=== PATIENT | female | born 1960 | race Caucasian/White ===

== ENCOUNTER → 2020-09-08 09:47 | Outpatient (BNVA) | payer OTHER, SELFPAY | PROVIDERS: PCP Nurse Practitioner Family; Visit Provider Internal Medicine Endocrinology, Diabetes & Metabolism | DX: E11.9 Type 2 diabetes mellitus without complications (principal); E78.5 Hyperlipidemia, unspecified; I10 Essential (primary) hypertension; E55.9 Vitamin D deficiency, unspecified; E66.01 Morbid (severe) obesity due to excess calories; Z79.4 Long term (current) use of insulin | CPT/HCPCS: 82947 ==

== ENCOUNTER 2021-01-31 12:32 | Outpatient (REF) | payer OTHER, SELFPAY ==
--- NOTE | ~2021-01-31 | XR_ITS ---
EXAMINATION: RIGHT HAND CLINICAL INFORMATION: Effusion COMPARISON: None TECHNIQUE: 3 views right hand FINDINGS: 3 views of the right hand demonstrate a 6 x 3 mm bony density about the radial base of the first metacarpal which may represent sequela of previous injury. Adjacent fat plane appears intact making this less likely to be an acute injury. This less likely is a secondary ossification center. There is degenerative change of the first interphalangeal joint with prominent spurring present. XR/XR hand wrist RT IMPRESSION: Question acute versus chronic avulsion injury base of the first metacarpal for which clinical correlation is suggested. Degenerative change of the first interphalangeal joint.
[2021-01-31 13:40] LABS: Estimated Average Glucose 134 mg/dL; Hemoglobin A1c % 6.3 %
[2021-01-31 13:49] LABS: Uric Acid 6.5 mg/dL (2.4-5.7)
[2021-01-31 13:50] LABS: Alanine Aminotransferase 11 U/L (0-31); Albumin Level 3.9 g/dL (3.5-5.0); Alkaline Phosphatase 88 U/L (39-117); Anion Gap 15 (12-20); Aspartate Amino Transferase 12 U/L (5-31); Bilirubin Total 0.4 mg/dL (0.0-1.0); Blood Urea Nitrogen 19 mg/dL (9-16); Carbon Dioxide 25 mmol/L (22-29); Chloride 106 mmol/L (96-108); Cholesterol 155 mg/dL; Estimated Glomerular Filt Rate 39; Glucose Fasting 136 mg/dL (60-99); HDL Cholesterol 40 mg/dL; LDL Cholesterol Calculated 86 mg/dl; Sodium 141 mmol/L (135-145); Total Protein 7.7 g/dL (6.5-8.0); Triglycerides 146 mg/dL
[2021-01-31 14:16] LABS: Erythrocyte Sedimentation Rate 64 MM/HR (0-20)
== END 2021-01-31 12:33 | disposition home or self-care (01) ==
LOC: HO.HMGCX 12:32
PROVIDERS: PCP Nurse Practitioner Family; Visit Provider Nurse Practitioner Family
DX: M25.431 Effusion, right wrist (principal); M79.644 Pain in right finger(s); E11.9 Type 2 diabetes mellitus without complications; M79.646 Pain in unspecified finger(s); E78.5 Hyperlipidemia, unspecified
CPT/HCPCS: 36415; 73110; 73130; 80053; 80061; 83036; 84550; 85652

== ENCOUNTER → 2021-08-20 11:00 | Outpatient (BNVA) | payer OTHER, SELFPAY | PROVIDERS: PCP Nurse Practitioner Family; Visit Provider Nurse Practitioner Gerontology | DX: E11.9 Type 2 diabetes mellitus without complications (principal); E78.5 Hyperlipidemia, unspecified; E55.9 Vitamin D deficiency, unspecified; E66.01 Morbid (severe) obesity due to excess calories; I10 Essential (primary) hypertension; Z79.4 Long term (current) use of insulin | CPT/HCPCS: 82947; 83036 ==

== ENCOUNTER 2022-12-13 09:07 | Outpatient (REF) | payer OTHER, SELFPAY ==
[2022-12-13 11:15] LABS: MANUAL DIFF FLAG NO
[2022-12-13 11:26] LABS: Basophils Absolute Auto 0.1 X10*3/uL (0.0-0.2); Basophils Percent Auto 0.6 % (0-2); Eosinophils Absolute Auto 0.3 X10*3/uL (0.0-0.4); Eosinophils Percent Auto 3.2 % (0-4); Hematocrit 38.4 % (37.0-47.0); Hemoglobin 11.9 g/dl (12.0-16.0); Imm Gran Abs Auto 0.04 X10*3/uL (0.00-0.03); Imm Gran Pct Auto 0.4 % (0.0-0.4); Lymphocytes Absolute Auto 2.2 X10*3/uL (1.2-4.9); Lymphocytes Percent Auto 21.6 % (20-40); Mean Corpuscular Hemoglobin 28.8 pg (27.0-33.0); Mean Platelet Volume 10.8 fL (9.4-12.3); Monocytes Absolute Auto 0.6 X10*3/uL (0.1-1.2); Monocytes Percent Auto 6.3 % (2-11); Neutrophils Absolute Auto 6.8 x10*3/uL (2.0-8.3); Neutrophils Percent Auto 67.9 % (45-73); Platelet Count 326 X10*3/uL (160-400); Red Blood Count 4.13 X10*6/uL (4.20-5.50); Red Cell Distribution Width 13.9 % (11.0-16.0)
[2022-12-13 11:27] LABS: Estimated Average Glucose 160 mg/dL; Hemoglobin A1c % 7.2 %
[2022-12-13 11:38] LABS: Appearance Urine Clear; Color Urine Yellow; Glucose Urine UA Negative (Negative); Leukocyte Esterase Urine Negative (Negative); Nitrite Urine Negative (Negative); PH 5.5 (5.0-9.0); Specific Gravity - Urine 1.015 (1.005-1.025); UMIC TRIGGER UACC YES; Urine Blood Negative (Negative); Urine Ketones Negative (Negative); Urine Protein 30 (1+) mg/dL (Neg-Trace)
[2022-12-13 12:04] LABS: Alanine Aminotransferase 12 U/L (0-31); Albumin Level 3.8 g/dL (3.5-5.0); Alkaline Phosphatase 92 U/L (39-117); Anion Gap 13 (12-20); Aspartate Amino Transferase 11 U/L (5-31); Bilirubin Total 0.7 mg/dL (0.0-1.0); Blood Urea Nitrogen 16 mg/dL (9-16); Calcium 9.2 mg/dL (8.4-10.2); Carbon Dioxide 26 mmol/L (22-29); Chloride 109 mmol/L (96-108); Cholesterol 176 mg/dL; Estimated Glomerular Filt Rate 44; Glucose Fasting 102 mg/dL (60-99); HDL Cholesterol 43 mg/dL; LDL Cholesterol Calculated 112 mg/dl; Potassium 4.7 mmol/L (3.3-5.1); Sodium 143 mmol/L (135-145); Total Protein 7.4 g/dL (6.5-8.0); Triglycerides 109 mg/dL
[2022-12-13 12:04] LABS: Bacteria Urine Trace (None Seen); Hyaline Casts Urine 0-2 /LPF (0-2); RBC Urine 0-2 /HPF (0-2); WBC Urine 0-5 /HPF (0-5)
[2022-12-13 12:14] LABS: Creatinine Urine 142.36 mg/dL; Microalbum/Creatinine Ratio Ur 150.3 ug/mg cr
[2022-12-13 12:24] LABS: Folate 17.6 ng/mL (> or = 4.0); TSH reflex Free T4 1.37 uIU/mL (0.32-4.0); Vitamin B12 1362 pg/mL (200-900); Vitamin D 25-OH Total 43.6 ng/mL (>30)
== END 2022-12-13 09:08 | disposition home or self-care (01) ==
LOC: HO.HMGCLDS 09:07
PROVIDERS: PCP Nurse Practitioner Family; Visit Provider Nurse Practitioner Family
DX: Z00.00 Encounter for general adult medical examination without abnormal findings (principal); E11.9 Type 2 diabetes mellitus without complications; E55.9 Vitamin D deficiency, unspecified; D51.0 Vitamin B12 deficiency anemia due to intrinsic factor deficiency
CPT/HCPCS: 36415; 80053; 80061; 81001; 82043; 82306; 82607; 82746; 83036; 84443; 85025

== ENCOUNTER 2023-06-23 08:37 | Outpatient (AMB) | payer OTHER, SELFPAY ==
--- NOTE | 2023-06-23 09:54 | AM.OFFWIN_ITS ---
Intake Vital Signs 06/23/23 10:06 Height 5 ft 7 in BP 130/80 Blood Pressure Location Lt brachial Position Sitting Pulse 84 Pulse Source Pulse Oximeter Temp 97.7 F Temp Source Temporal Artery Scan Pulse Oximetry (%) 99 Oxygen Delivery Method Room Air Intake Visit Reasons: EST/uti/(lobby) Intake Note: pt is here today for UTI started yesterday Patient Tobacco Use Status: Never used Tobacco Allergies lisinopril [LISINOPRIL] Allergy (Mild, Verified 06/23/23 10:08) COUGHING, cough Penicillins [PENICILLINS] Allergy (Mild, Verified 06/23/23 10:08) HIVES Sulfa (Sulfonamide Antibiotics) [SULFA (SULFONAMIDE ANTIBIOTICS)] Allergy (Mild, Verified 06/23/23 10:08) HIVES adhesive tape [ADHESIVE TAPE] Allergy (Unknown, Verified 06/23/23 10:08) RASH amlodipine [Norvasc] Allergy (Unknown, Verified 06/23/23 10:08) fluid retention losartan Allergy (Unknown, Verified 06/23/23 10:08) unkown penicillin V Allergy (Unknown, Verified 06/23/23 10:08) hives rifampin Allergy (Unknown, Verified 06/23/23 10:08) severe skin chambers tape adhesive Allergy (Unknown, Verified 06/23/23 10:08) unknown Do you need a note to return to daycare/school/sports/work: No HPI EST/uti/(lobby) HPI Details This is a 63-year-old female patient who presents today with possible UTI. She reports urinary burning, frequency, urgency since yesterday morning. Has tried to increase hydration and has been drinking cranberry juice. Denies any fever or chills. Denies any back or flank pain. [facility] Medical History Colonoscopy refused H/O fracture of foot detention (current) use of insulin Morbid obesity Vitamin D deficiency Pernicious anemia Reactive depression CKD (chronic kidney disease), stage III Hypertension Dyslipidemia Diabetes type 2, controlled Surgical History H/O lumbosacral spine surgery Family History Father Congestive heart failure Emphysema lung Smoker Mother Hypertension Social History Household Members: None Housing: House Alcohol intake: never Patient Tobacco Use Status: Never used Tobacco e-Cigarette/Vaping Use: Never Used Second Hand Smoke Exposure: No service: No Current occupational status: retired Cognitive needs: No Hearing needs: No Vision needs: No Review of Systems Const All systems reviewed & are unremarkable except as noted in HPI and below Physical Exam Vital Signs: Last Vital Signs Temp 97.7 F 06/23/23 10:06 Pulse 84 06/23/23 10:06 BP 130/80 06/23/23 10:06 Pulse Ox 99 06/23/23 10:06 Oxygen Delivery Method Room Air 06/23/23 10:06 Const General: cooperative and no acute distress Resp Effort & Inspection: normal respiratory effort General: Yes bladder normal to palpation and Yes no CVA tenderness Bimanual exam- vagina & uterus: bladder normal to palpation Back/Spine/Pelvis Back: no CVA tenderness Skin General skin exam: no rashes or lesions noted Extrem General: Yes capillary refill normal and Yes no clubbing, cyanosis or edema Psych Appearance: grossly normal Mental Status: mental status grossly normal Results AMB Urinalysis, Automated UA Leukoctes 500 Jo/uL Last Edit by Davon Gaitan CMA on 06/23/23 10:0 0 UA Nitrite Negative Last Edit by Davon Gaitan CMA on 06/23/23 10:00 UA Urobilinogen 0.2 mg/dL Last Edit by Davon Gaitan CMA on 06/23/23 10 :00 UA Protein 30 mg/dL Last Edit by Davon Gaitan CMA on 06/23/23 10:00 UA pH 6.0 Last Edit by Davon Gaitan CMA on 06/23/23 10:00 UA Blood 200 Bautista/uL Last Edit by Davon Gaitan CMA on 06/23/23 10:00 UA Specific [place] 1.015 Last Edit by Davon Gaitan CMA on 06/23/23 10:00 UA Ketone Negative Last Edit by Davon Gaitan CMA on 06/23/23 10:00 UA Bilirubin 0 mg/dL Last Edit by Davon Gaitan CMA on 06/23/23 10:00 UA Glucose 0 mg/dL Last Edit by Davon Gaitan CMA on 06/23/23 10:00 Results Reviewed Results Reviewed: Laboratory Last Values Urine pH (Auto) 6.0 06/23/23 09:59 Specific [place] (Auto) 1.015 06/23/23 09:59 Urine Protein (Auto) 30 mg/dL 06/23/23 09:59 Glucose (UA)(Auto) 0 mg/dL 06/23/23 09:59 Urine Ketones (Auto) Negative 06/23/23 09:59 Urine Blood (Auto) 200 Bautista/uL 06/23/23 09:59 Urine Nitrite (Auto) Negative 06/23/23 09:59 Urine Bilirubin (Auto) 0 mg/dL 06/23/23 09:59 Urine Urobilinogen (Auto) 0.2 mg/dL 06/23/23 09:59 Leukocyte Esterase (Auto) 500 Jo/uL 06/23/23 09:59 Assessment & Plan Assessment & Plan (1) Urinary tract infection: Code(s): N39.0 - Urinary tract infection, site not specified Qualifiers: Urinary tract infection type: acute cystitis Hematuria presence: with hematuria Qualified Code(s): N30.01 - Acute cystitis with hematuria Plan: Macrobid 5 days for UTI. Also will start her on pyridium for the urinary burning. Urine dip with leuks, protein, blood. Reviewed indications, use, poss ible side effects of medication. Advised increased hydration. Will return to the clinic if she does not improve with treatment, or if symptoms such as lower back/flank pain, fever or chills develop. She verbalizes understanding and agrees to plan. Orders: Orders AMB Urinalysis Automated Today Z13.9 - Encounter for screening, unspecified Medications: New phenazopyridine 200 mg PO TID PRN 6 tabs 0RF pain 6 doses nitrofurantoin monohyd/m-cryst 100 mg (Macrobid) must administer with a meal/food 100 mg PO Q12H 10 caps 0RF 5 days N30.90 - Cystitis, unspecified without hematuria Coding Level of Care Code Est Pt Level 3 (01887) Diagnoses Acute cystitis with hematuria N30.01 Urinary tract infection type: acute cystitis Hematuria presence: with hematuria
[2023-06-23 10:06] VITALS: BP 130/80; PULSE 84; TEMP 36.5; O2SAT 99
== END 2023-06-23 10:30 | disposition home or self-care (01) ==
PROVIDERS: PCP Nurse Practitioner Family; Visit Provider Nurse Practitioner Family
DX: N30.01 Acute cystitis with hematuria (principal); R35.0 Frequency of micturition
CPT/HCPCS: 81003; 99213

== ENCOUNTER 2023-09-17 09:53 | Outpatient (REF) | payer OTHER, SELFPAY ==
[2023-09-17 11:07] LABS: Appearance Urine Clear; Color Urine Yellow; Glucose Urine UA Negative (Negative); Leukocyte Esterase Urine Negative (Negative); Nitrite Urine Negative (Negative); Specific Gravity - Urine 1.015 (1.005-1.025); UMIC TRIGGER UACC YES; Urine Blood Negative (Negative); Urine Ketones Negative (Negative); Urine Protein 30 (1+) mg/dL (Neg-Trace)
[2023-09-17 11:12] LABS: Bacteria Urine 1+ (None Seen); Hyaline Casts Urine 0-2 /LPF (0-2); RBC Urine 0-2 /HPF (0-2); WBC Urine 0-5 /HPF (0-5)
[2023-09-17 11:17] LABS: MANUAL DIFF FLAG NO
[2023-09-17 11:24] LABS: Basophils Percent Auto 0.4 % (0-2); Eosinophils Absolute Auto 0.2 X10*3/uL (0.0-0.4); Eosinophils Percent Auto 2.2 % (0-4); Hematocrit 36.2 % (37.0-47.0); Hemoglobin 11.4 g/dl (12.0-16.0); Imm Gran Abs Auto 0.02 X10*3/uL (0.00-0.03); Imm Gran Pct Auto 0.2 % (0.0-0.4); Lymphocytes Absolute Auto 2.6 X10*3/uL (1.2-4.9); Lymphocytes Percent Auto 27.2 % (20-40); Mean Corpuscular HGB Conc 31.5 g/dl (31.0-35.0); Mean Corpuscular Hemoglobin 29.5 pg (27.0-33.0); Mean Corpuscular Volume 93.8 fL (80.0-98.0); Mean Platelet Volume 10.4 fL (9.4-12.3); Monocytes Absolute Auto 0.7 X10*3/uL (0.1-1.2); Monocytes Percent Auto 7.2 % (2-11); Neutrophils Absolute Auto 5.9 x10*3/uL (2.0-8.3); Neutrophils Percent Auto 62.8 % (45-73); Platelet Count 271 X10*3/uL (160-400); Red Blood Count 3.86 X10*6/uL (4.20-5.50); Red Cell Distribution Width 13.6 % (11.0-16.0); White Blood Count 9.4 X10*3/uL (4.8-10.8)
[2023-09-17 13:33] LABS: Alanine Aminotransferase 16 U/L (0-31); Albumin Level 3.7 g/dL (3.5-5.0); Alkaline Phosphatase 86 U/L (39-117); Anion Gap 11 (12-20); Aspartate Amino Transferase 12 U/L (5-31); Bilirubin Total 0.4 mg/dL (0.0-1.0); Blood Urea Nitrogen 17 mg/dL (9-16); Calcium 9.4 mg/dL (8.4-10.2); Carbon Dioxide 27 mmol/L (22-29); Chloride 111 mmol/L (96-108); Estimated Glomerular Filt Rate 40; Glucose Random 93 mg/dL (60-115); Sodium 144 mmol/L (135-145); Total Protein 7.4 g/dL (6.5-8.0)
== END 2023-09-17 09:54 | disposition home or self-care (01) ==
LOC: HO.HMGCLDS 09:53
PROVIDERS: PCP Nurse Practitioner Family; Visit Provider Nurse Practitioner Family
DX: E11.9 Type 2 diabetes mellitus without complications (principal); R80.9 Proteinuria, unspecified; I10 Essential (primary) hypertension
CPT/HCPCS: 36415; 80053; 81001; 85025

== ENCOUNTER 2023-09-21 09:32 | Outpatient (AMB) | payer OTHER, SELFPAY ==
[2023-09-21 09:35] VITALS: BP 126/76; PULSE 78; O2SAT 98
--- NOTE | 2023-09-21 09:35 | A.OFFPC_ITS ---
Vital Signs 09/21/23 09:35 Height 5 ft 7 in BMI Reason not done Patient refused/unable BP 126/76 Blood Pressure Location Lt radial Position Sitting Pulse 78 Pulse Source Pulse Oximeter Pulse Oximetry (%) 98 Oxygen Delivery Method Room Air Intake Visit Reasons: 6M. 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: No Allergies lisinopril [LISINOPRIL] Allergy (Mild, Verified 09/21/23 09:59) COUGHING, cough Penicillins [PENICILLINS] Allergy (Mild, Verified 09/21/23 09:59) HIVES Sulfa (Sulfonamide Antibiotics) [SULFA (SULFONAMIDE ANTIBIOTICS)] Allergy (Mild, Verified 09/21/23 09:59) HIVES adhesive tape [ADHESIVE TAPE] Allergy (Unknown, Verified 09/21/23 09:59) RASH amlodipine [Norvasc] Allergy (Unknown, Verified 09/21/23 09:59) fluid retention losartan Allergy (Unknown, Verified 09/21/23 09:59) unkown penicillin V Allergy (Unknown, Verified 09/21/23 09:59) hives rifampin Allergy (Unknown, Verified 09/21/23 09:59) severe skin chambers tape adhesive Allergy (Unknown, Verified 09/21/23 09:59) unknown Medication List - Last Reconciled 09/21/23 by SOLE Painting- cholecalciferol (vitamin D3) 50 mcg PO DAILY cyanocobalamin (vitamin B-12) 100 mcg PO DAILY diltiazem HCl 240 mg PO DAILY 90 days dulaglutide (Trulicity) 0.75 mg (0.5 mL) subcut QWEEK 30 days insulin glargine U-300 conc (Toujeo Max U-300 SoloStar) 20 units (0.0667 mL) subcut DAILY 90 days irbesartan 75 mg PO DAILY metformin 500 mg PO BID multivitamin 1 tab PO DAILY pen needle, diabetic (BD Brooke 2nd Gen Pen Needle) once a day pravastatin 10 mg PO BEDTIME 90 days sertraline 50 mg PO DAILY Tobacco use date assessed: 09/21/23 Dental Screening Dental Screen Date: 09/21/23 Did you have a dental visit in the last 12 months?: Yes Did you have a dental problem in the last 6 months where you did not have access to dental care?: No Was dental information given to patient?: Patient has dentist HPI 6M. F/U-DM HPI Details Pt is a diabetic, on an ARB and a statin. A1C in office today is 6.8. Microalbumin is up to date. Denies polyuria, polydipsia, and neuropathy. Pt denies any signs and symptoms of hypoglycemia and does know how to correct it. Will increase trulicity from 0.75mg to 1.5mg. Pt has been working on her diet. eye exam is up to date according to pt. Anemia noted on last labs. Will repeat labs including iron/b12. Denies any blood in stool or vaginal bleeding. Systolic murmur noted, last echo was in 2017, will repeat. [facility] Medical History Colonoscopy refused H/O fracture of foot [facility] (current) use of insulin Morbid obesity Vitamin D deficiency Pernicious anemia Reactive depression CKD (chronic kidney disease), stage III Hypertension Dyslipidemia Diabetes type 2, controlled Surgical History H/O lumbosacral spine surgery Family History Father Congestive heart failure Emphysema lung Smoker Mother Hypertension Social History Household Members: None Housing: House Alcohol intake: never Patient Tobacco Use Status: Never used Tobacco e-Cigarette/Vaping Use: Never Used Second Hand Smoke Exposure: No service: No Current occupational status: retired Cognitive needs: No Hearing needs: No Vision needs: No Questionnaire Thrive Questionnaire Date Thrive assessed: 06/17/22 MARYLOU-7 AMB Questionnaire MARYLOU-7 Date MARYLOU - 7 assessed: 06/17/22 Source: Developed by Drs. Stephen Cotton, Salma Mcdonough, Scott Mejia and colleagues, with an educational natalio from [employer]. Review of Systems Const Reports as per HPI Physical exam (Primary Care) Vital Signs: Last Vital Signs Pulse 78 09/21/23 09:35 BP 126/76 09/21/23 09:35 Pulse Ox 98 09/21/23 09:35 Oxygen Delivery Method Room Air 09/21/23 09:35 Tobacco/Smoking Status: Tobacco use Status Tobacco use date assessed 09/21/23 09/21/23 09:48 Patient Tobacco Use Status Never used Tobacco 09/21/23 09:35 e-Cigarette/Vaping Use Never Used 09/21/23 09:35 Thrive Assessment: Date of Thrive Assessment Date Thrive assessed 06/17/22 09/21/23 09:35 Const General: cooperative Orientation/consciousness: patient oriented x3 Resp Effort & Inspection: normal respiratory effort Auscultation: clear to auscultation bilaterally Cardio Rate: regular rate Rhythm: regular rhythm Heart sounds: S1 normal heart sound present, S2 normal heart sound present and Murmur heart sound present systolic Neuro General: patient oriented x3 Extrem Other: refused foot exam Psych Appearance: grossly normal Mental Status: mental status grossly normal Speech and movement: Normal speech and movement present Affect: normal affect Attitude: cooperative Thought process: Normal thought process present Thought content: Normal thought content present Insight: Good insight present (Psych) Judgement: Good judgement present (Psych) Results AMB Hemoglobin A1c AMB Hemoglobin A1c 6.8 % Last Edit by Davon Gaitan CMA on 09/21/23 10: 05 Immunizations pneumoc 20-negar conj-dip cr(PF) 0.5 mL IM syringe Performing Provider: NATALIA Painting Performing Location: [facility] [place] [facility] Administered by: Davon Gaitan CMA on 09/21/23 10:26 Dose Route Admin Location Dispensed Lot Number Expiration Date [facility] [place] [employer] 0.5 mL IM Right Deltoid 0.5 mL [id number] 08/11/24 [employer] VIS Given Date VIS Provided VIS Publication Date 09/21/23 Single Vaccine 21 Eligibility Eligibility Date Funding Source Not VFC Eligible 09/21/23 Private Results Reviewed Results Reviewed: Laboratory Last Values Hgb A1c (Clinic) 6.8 % (4.0-6.0) H 09/21/23 10:04 Assessment and Plan Assessment & Plan (1) Anemia: Code(s): D64.9 - Anemia, unspecified Plan: Labs ordered (2) Diabetes type 2, controlled: Code(s): E11.9 - Type 2 diabetes mellitus without complications Plan: increased trulicity Plan The patient agreed to the use of a certified medical dosimetrist for this encounter. Scribed for NATALIA Miller by Caroline Nguyen certified medical dosimetrist, on 09/21/2023 at 10:00 EST. Orders: Orders Complete Blood Count Auto Diff Today D64.9 - Anemia, unspecified IRON PROFILE Today D64.9 - Anemia, unspecified Reticulocyte Count Today D64.9 - Anemia, unspecified Pneumococcal 20 Immunization Today Z23 - Encounter for immunization Ferritin Today D64.9 - Anemia, unspecified Vitamin B12 and Folate Today D64.9 - Anemia, unspecified Hemoglobin Electrophoresis Today D64.9 - Anemia, unspecified AMB Hemoglobin A1c Today Z13.9 - Encounter for screening, unspecified CA echo transthoracic complete Today Medications: Changed From dulaglutide (Trulicity) 0.75 mg (0.5 mL) subcut QWEEK 30 days 2.5 mL 3RF To dulaglutide 1.5 mg (0.5 mL) subcut QWEEK 2.5 mL 3RF 30 days Coding Level of Care Code Est Pt Level 3 (61787) Diagnoses Anemia D64.9 Diabetes type 2, controlled E11.9
== END 2023-09-21 11:48 | disposition home or self-care (01) ==
PROVIDERS: PCP Nurse Practitioner Family; Visit Provider Nurse Practitioner Family
DX: D64.9 Anemia, unspecified (principal); E11.9 Type 2 diabetes mellitus without complications; Z23 Encounter for immunization
CPT/HCPCS: 83036; 90471; 90677; 99214

== ENCOUNTER 2023-11-24 10:26 | Outpatient (AMB) | payer OTHER, SELFPAY ==
[2023-11-24 10:30] VITALS: BP 118/70; PULSE 77; TEMP 36.5; O2SAT 98
--- NOTE | 2023-11-24 10:30 | AM.OFFWIN_ITS ---
Intake Vital Signs 11/24/23 10:30 Height 5 ft 7 in BMI Reason not done Patient refused/unable BP 118/70 Blood Pressure Location Lt brachial Position Sitting Pulse 77 Pulse Source Pulse Oximeter Temp 97.7 F Temp Source Temporal Artery Scan Pulse Oximetry (%) 98 Oxygen Delivery Method Room Air Intake Visit Reasons: EST/uti (lobby) Intake Note: pt is here today for UTI started 2 days ago Patient Tobacco Use Status: Never used Tobacco Allergies lisinopril [LISINOPRIL] Allergy (Mild, Verified 11/24/23 10:41) COUGHING, cough Penicillins [PENICILLINS] Allergy (Mild, Verified 11/24/23 10:41) HIVES Sulfa (Sulfonamide Antibiotics) [SULFA (SULFONAMIDE ANTIBIOTICS)] Allergy (Mild, Verified 11/24/23 10:41) HIVES adhesive tape [ADHESIVE TAPE] Allergy (Unknown, Verified 11/24/23 10:41) RASH amlodipine [Norvasc] Allergy (Unknown, Verified 11/24/23 10:41) fluid retention losartan Allergy (Unknown, Verified 11/24/23 10:41) unkown penicillin V Allergy (Unknown, Verified 11/24/23 10:41) hives rifampin Allergy (Unknown, Verified 11/24/23 10:41) severe skin chambers tape adhesive Allergy (Unknown, Verified 11/24/23 10:41) unknown Do you need a note to return to daycare/school/sports/work: No HPI HPI Comments History of Present Illness Details This is a 63-year-old female who presented to the walk-in clinic complaining of urinary symptoms such as dysuria and increased urinary frequency/urgency times 3-4 days. Patient reports a fever of 103? F last night; however, her fever has resolved with the use of acetaminophen. She reports mild nausea but denies any vomiting. She denies any flank pain. She denies any hematuria. She states she started taking [id number] Azo without any significant relief. [facility] Medical History Colonoscopy refused H/O fracture of foot residential (current) use of insulin Morbid obesity Vitamin D deficiency Pernicious anemia Reactive depression CKD (chronic kidney disease), stage III Hypertension Dyslipidemia Diabetes type 2, controlled Surgical History H/O lumbosacral spine surgery Family History Father Congestive heart failure Emphysema lung Smoker Mother Hypertension Social History Household Members: None Housing: House Alcohol intake: never Patient Tobacco Use Status: Never used Tobacco e-Cigarette/Vaping Use: Never Used Second Hand Smoke Exposure: No service: No Current occupational status: retired Cognitive needs: No Hearing needs: No Vision needs: No Review of Systems Const All systems reviewed & are unremarkable except as noted in HPI and below Reports no additional complaints Eyes Reports no additional complaints ENT Reports no additional complaints Card Reports no additional complaints Resp Reports no additional complaints GI Reports no additional complaints Reports no additional complaints Musc Reports no additional complaints Skin/Breast Reports system reviewed and no additional complaints, except as documented Neuro Reports no additional complaints Psych Reports no additional complaints Endo Reports no additional complaints Naatoly/Lymph Reports no additional complaints Aller/Immun Reports no additional complaints Physical Exam Vital Signs: Last Vital Signs Temp 97.7 F 11/24/23 10:30 Pulse 77 11/24/23 10:30 BP 118/70 11/24/23 10:30 Pulse Ox 98 11/24/23 10:30 Oxygen Delivery Method Room Air 11/24/23 10:30 Const Other: Vital signs reviewed. Constitutional: Non-toxic appearing. No acute distress. Well-developed and well-nourished. HEENT: Normocephalic and atraumatic. Skin: Warm and dry. No rashes or lesions noted. Neck: Full and painless range of motion. No cervical lymphadenopathy. Cardio: Regular rate. No lower extremity edema. No JVD. Pulmonary: No respiratory distress. No accessory muscle usage. Gastrointestinal: Soft, nontender, and nondistended. Normoactive bowel sounds. Genitourinary: No CVA tenderness. Musculoskeletal: Normal range of motion in joints throughout the body. No deformity or other signs of injury. Neuro: Alert and oriented x4. Cranial nerves 2-12 grossly intact. No focal deficits appreciated. Psych: Normal mood and affect. Results AMB Urinalysis, Automated UA Leukoctes 500 Jo/uL Last Edit by Davon Gaitan CMA on 11/24/23 11:1 8 UA Nitrite Positive Last Edit by Davon Gaitan CMA on 11/24/23 11:18 UA Urobilinogen 0.2 mg/dL Last Edit by Davon Gaitan CMA on 11/24/23 11 :18 UA Protein 100 mg/dL Last Edit by Davon Gaitan CMA on 11/24/23 11:18 UA pH 5.5 Last Edit by Davon Gaitan CMA on 11/24/23 11:18 UA Blood 200 Bautista/uL Last Edit by Davon Gaitan CMA on 11/24/23 11:18 UA Specific [place] 1.020 Last Edit by Davon Gaitan CMA on 11/24/23 11:18 UA Ketone Positive Last Edit by Davon Gaitan CMA on 11/24/23 11:18 UA Bilirubin 1 mg/dL Last Edit by Davon Gaitan CMA on 11/24/23 11:18 UA Glucose 0 mg/dL Last Edit by Davon Gaitan CMA on 11/24/23 11:18 Assessment & Plan Assessment & Plan (1) Acute cystitis: Code(s): N30.00 - Acute cystitis without hematuria Qualifiers: Hematuria presence: without hematuria Qualified Code(s): N30.00 - Acute cystitis without hematuria Plan: This is a 63-year-old female presenting to the office complaining of urinary symptoms. POCT urinalysis shows 3+ leukocyte esterase and positive nitrites. Patient's vital signs are stable, physical exam is benign, and patient is overall nontoxic appearing. No CVA tenderness to suggest acute pyelonephritis. History and physical most consistent with an acute uncomplicated cystitis. Patient sent home on PO nitrofurantoin 100 mg twice daily x5 days. Recommended symptomatic management including increased fluids, Advil/Tylenol as needed for pain as long as patient has no medical contraindications, and PO phenazopyridine three times daily as needed x 3 days. Patient was advised to follow-up here or proceed directly to the emergency room if they were to develop worsening/persistent fever/chills, nausea/vomiting, flank/back pain, or worsening/persistent symptoms. Patient verbalizes understanding and they are in agreement with the plan. Medications: New phenazopyridine 100 mg PO TID PRN 6 tabs 0RF pain nitrofurantoin macrocrystal must administer with a meal/food 100 mg PO BID 10 caps 0RF Coding Level of Care Code Est Pt Level 3 (15643) Diagnoses Acute cystitis without hematuria N30.00 Hematuria presence: without hematuria
== END 2023-11-24 12:05 | disposition home or self-care (01) ==
PROVIDERS: PCP Nurse Practitioner Family; Visit Provider Physician Assistant Medical
DX: Z13.9 Encounter for screening, unspecified (principal); N30.00 Acute cystitis without hematuria
CPT/HCPCS: 81003; 99213

== ENCOUNTER 2024-07-14 08:06 | Outpatient (REF) | payer OTHER, SELFPAY ==
[2024-07-14 11:22] LABS: MANUAL DIFF FLAG NO
[2024-07-14 11:45] LABS: Estimated Average Glucose 140 mg/dL; Hemoglobin A1C 146.0886 umol/L; Hemoglobin A1c % 6.5 % (<6.0); Total Hemoglobin (HGBA1C) 3070.2341 umol/L
[2024-07-14 11:47] LABS: Basophils Absolute Auto 0.1 X10*3/uL (0.0-0.2); Basophils Percent Auto 0.6 % (0-2); Eosinophils Absolute Auto 0.1 X10*3/uL (0.0-0.4); Eosinophils Percent Auto 1.2 % (0-4); Hematocrit 36.6 % (37.0-47.0); Hemoglobin 11.6 g/dl (12.0-16.0); Imm Gran Abs Auto 0.05 X10*3/uL (0.00-0.03); Imm Gran Pct Auto 0.5 % (0.0-0.4); Immature Retic Fraction 14.5 % (3.0-15.9); Lymphocytes Absolute Auto 2.4 X10*3/uL (1.2-4.9); Lymphocytes Percent Auto 21.9 % (20-40); Mean Corpuscular HGB Conc 31.7 g/dl (31.0-35.0); Mean Corpuscular Hemoglobin 29.9 pg (27.0-33.0); Mean Corpuscular Volume 94.3 fL (80.0-98.0); Mean Platelet Volume 10.4 fL (9.4-12.3); Monocytes Absolute Auto 0.6 X10*3/uL (0.1-1.2); Monocytes Percent Auto 5.7 % (2-11); Neutrophils Absolute Auto 7.6 x10*3/uL (2.0-8.3); Neutrophils Percent Auto 70.1 % (45-73); Platelet Count 303 X10*3/uL (160-400); Red Blood Count 3.88 X10*6/uL (4.20-5.50); Red Cell Distribution Width 13.7 % (11.0-16.0); Retic HGB Equivalent 32.6 pg (30.0-35.0); Reticulocytes Absolute 0.076 X10*6/uL (0.026-0.095); White Blood Count 10.9 X10*3/uL (4.8-10.8)
[2024-07-14 11:55] LABS: Alanine Aminotransferase 12 U/L (0-31); Albumin Level 3.6 g/dL (3.5-5.0); Alkaline Phosphatase 86 U/L (39-117); Anion Gap 14 (12-20); Aspartate Amino Transferase 23 U/L (5-31); Bilirubin Total 0.4 mg/dL (0.0-1.0); Blood Urea Nitrogen 25 mg/dL (9-16); Calcium 9.3 mg/dL (8.4-10.2); Carbon Dioxide 23 mmol/L (22-29); Chloride 111 mmol/L (96-108); Cholesterol 160 mg/dL (<200); Estimated Glomerular Filt Rate 38; Glucose Fasting 113 mg/dL (60-99); HDL Cholesterol 38 mg/dL (>40); Iron 43 mcg/dL (30-160); LDL Cholesterol Calculated 96 mg/dL (<100); Percent Iron Saturation 21 % (15-50); Potassium 4.8 mmol/L (3.3-5.1); Sodium 143 mmol/L (135-145); Total Iron Binding Capacity 209 mcg/dL (228-428); Total Protein 7.5 g/dL (6.5-8.0); Triglycerides 134 mg/dL (<150); Unsaturated Iron Binding 166 ug/dL
[2024-07-14 12:05] LABS: Creatinine Urine 127.64 mg/dL; Microalbum/Creatinine Ratio Ur 32.9 ug/mg cr (<30)
[2024-07-14 12:14] LABS: Ferritin 200 ng/mL (10-250); TSH reflex Free T4 0.74 uIU/mL (0.32-4.0)
[2024-07-14 12:17] LABS: Appearance Urine Cloudy; Color Urine Yellow; Glucose Urine UA Negative (Negative); Leukocyte Esterase Urine Moderate (2+) (Negative); Nitrite Urine Positive (Negative); PH 5.5 (5.0-9.0); Specific Gravity - Urine 1.025 (1.005-1.025); UMIC TRIGGER UACC YES; Urine Blood Negative (Negative); Urine Ketones Negative (Negative); Urine Protein Negative (Neg-Trace)
[2024-07-14 12:20] LABS: Folate 14.9 ng/mL (> or = 4.0); Vitamin B12 1972 pg/mL (200-900)
[2024-07-14 12:51] LABS: Bacteria Urine 4+ (None Seen); Hyaline Casts Urine 0-2 /LPF (0-2); RBC Urine 0-2 /HPF (0-2); UACC Culture Trigger YES
[2024-07-18 13:54] LABS: Hematocrit 36.8 % (35.0-45.0); Hemoglobin 11.7 g/dL (11.7-15.5); MCH 30.4 pg (27.0-33.0); MCV 95.6 fL (80.0-100.0); RBC 3.85 Million/uL (3.80-5.10)
== END 2024-07-14 08:07 | disposition home or self-care (01) ==
LOC: HO.HMGCLDS 08:06
PROVIDERS: PCP Nurse Practitioner Family; Visit Provider Nurse Practitioner Family
DX: E11.9 Type 2 diabetes mellitus without complications (principal); E55.9 Vitamin D deficiency, unspecified; D64.9 Anemia, unspecified
CPT/HCPCS: 36415; 80053; 80061; 81001; 81003; 82043; 82570; 82607; 82728; 82746; 83020; 83036; 83540; 84443; 85014; 85018; 85025; 85041; 85045; 87086; 87088; 87186

== ENCOUNTER 2024-07-16 13:34 | Outpatient (AMB) | payer OTHER, SELFPAY ==
[2024-07-16 13:37] VITALS: BP 118/78; PULSE 78; O2SAT 98
--- NOTE | 2024-07-16 13:37 | A.OFFPC_ITS ---
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: No Accompanied by: Self / Same As Patient Allergies lisinopril [LISINOPRIL] Allergy (Mild, Verified 07/16/24 13:38) COUGHING, cough Penicillins [PENICILLINS] Allergy (Mild, Verified 07/16/24 13:38) HIVES Sulfa (Sulfonamide Antibiotics) [SULFA (SULFONAMIDE ANTIBIOTICS)] Allergy (Mild, Verified 07/16/24 13:38) HIVES adhesive tape [ADHESIVE TAPE] Allergy (Unknown, Verified 07/16/24 13:38) RASH amlodipine [Norvasc] Allergy (Unknown, Verified 07/16/24 13:38) fluid retention losartan Allergy (Unknown, Verified 07/16/24 13:38) unkown penicillin V Allergy (Unknown, Verified 07/16/24 13:38) hives rifampin Allergy (Unknown, Verified 07/16/24 13:38) severe skin chambers tape adhesive Allergy (Unknown, Verified 07/16/24 13:38) unknown Medication List - Last Reconciled 07/16/24 by SOEL Painting- cholecalciferol (vitamin D3) 50 mcg PO DAILY ciprofloxacin HCl (Cipro) 250 mg PO BID 3 days cyanocobalamin (vitamin B-12) 100 mcg PO DAILY diltiazem HCl CD 240 mg PO DAILY 90 days dulaglutide 1.5 mg (0.5 mL) subcut QWEEK insulin glargine U-300 conc (Toujeo Max U-300 SoloStar) 25 units (0.0833 mL) subcut DAILY 90 days irbesartan 75 mg PO DAILY metformin 500 mg PO BID multivitamin 1 tab PO DAILY pen needle, diabetic (BD Brooke 2nd Gen Pen Needle) once a day pravastatin 10 mg PO BEDTIME 90 days sertraline 50 mg PO DAILY Tobacco use date assessed: 07/16/24 Dental Screening Dental Screen Date: 07/16/24 Did you have a dental visit in the last 12 months?: Yes Did you have a dental problem in the last 6 months where you did not have access to dental care?: No Was dental information given to patient?: Patient has dentist HPI DM followup HPI Details Chief Complaint Follow-up regarding diabetes management. History of Present Illness The patient is a 64-year-old female presenting with a follow-up for diabetes management. She recently completed her laboratory work, revealing a Hemoglobin A1c level of 6.5%, indicating satisfactory control of her diabetes. However, the recent results are affected by a mild degree of anemia that could compromise the accuracy of the reading. She adheres to her prescribed medication regimen and reports no symptoms of neuropathy, polyuria, or polydipsia. NOTE: Hx of CKD. does not want to see any credit verification clerk or any other specialists An additional finding of leukocytosis was noted, and the patient exhibited a positive urine test, suggesting a urinary tract infection (UTI). She denies any associated symptoms such as fever, chills, burning sensation during urination, dysuria, or costovertebral angle tenderness. In the context of diabetes management, the patient exercises a refusal for a foot examination with the justification that her daughter, a nurse, examines her feet regularly. It is important to observe her communication in the management of potential complications due to her morbid obesity. Social History - Family Status: The patient has a daugh ter who is a nurse and assists with pat ient care at home. - Functional Status: Patient refused a f oot exam claiming regular monitoring by her daughter. Health Maintenance - Hemoglobin A1c: 6.5% - Advised increased fluid intake. Review of Systems - Neurological: Denies neuropathy. - Genitourinary: Denies polyuria, polydi psia, dysuria, costovertebral angle tenderness. - General: Denies fever, chills. Physical Exam General: Cooperative, healthy appearing, comfortable, no acute distress and well developed, morbidly obese Orientation: Patient oriented x3 Head: Normal to inspection Eyes: Appearance normal, both eyes and all related structures Neck: Normal visual inspection and Yes full ROM Respiratory: Normal respiratory effort and able to speak in complete sentences. Clear to auscultation bilaterally Cardiovascular: Regular rate and rhythm. Normal S1 and S2, faint systolic murmur GI: Normal to inspection. Soft to palpation and nontender, no CVA tenderness Skin: No rashes or lesions noted Neuro: Patient oriented x3 Extremities: Normal to inspection, patient refused a foot exam today Results - Labs: Hemoglobin A1c at 6.5%. - Labs: Positive urine analysis indicati ve of urinary tract infection. - Labs: Leukocytosis noted. Plan - Treat the urinary tract infection as i dentified through positive urinalysis. - Encourage increased fluid intake to he lp manage the urinary tract infection and improve overall hydration. - Advise repeat urinalysis with culture and additional laboratory work in the near future to monitor changes and ensure resolution of urinary infection. Patient was informed and verbally consented to the use of an ambient scribe for clinic note documentation during this visit. Discussion Notes During the consultation, I explained to the patient the diagnosis of a urinary tract infection based on the positive urinalysis. I discussed treatment options, emphasizing the importance of increasing fluid intake as part of management. I also encouraged a follow-up with repeat urinalysis with culture and additional laboratory evaluations to ensure the infection is adequately treated and monitor any changes in the health status. The patient expressed understanding of the treatment and its necessity. Future steps include continual monitoring of diabetes through laboratory assessments. I emphasized contacting the clinic should symptoms develop or worsen. Patient Instructions - Take prescribed medication for the uri nary tract infection as advised. - Increase water intake to aid recovery from the urinary tract infection. - Schedule follow-up laboratory tests, i ncluding urinalysis and culture, in the near future. - Monitor for any new symptoms such as f ever, chills, or burning with urination and seek care if they occur. - Continue to manage diabetes and adhere to medication as scheduled. [facility] Medical History (Updated 07/16/24 @ 14:02 by Pako Newsome, [facility]) Colonoscopy refused H/O fracture of foot skilled nursing (current) use of insulin Morbid obesity Vitamin D deficiency Pernicious anemia Reactive depression CKD (chronic kidney disease), stage III Hypertension Dyslipidemia Diabetes type 2, controlled Surgical History H/O lumbosacral spine surgery Family History Father Congestive heart failure Emphysema lung Smoker Mother Hypertension Social History Household Members: None Housing: House Alcohol intake: never Patient Tobacco Use Status: Never used Tobacco e-Cigarette/Vaping Use: Never Used Second Hand Smoke Exposure: No service: No Current occupational status: retired Cognitive needs: No Hearing needs: No Vision needs: No Questionnaire Thrive Questionnaire Date Thrive assessed: 07/16/24 I am a: Patient What is your living situation today?: I have a steady place to live Within the past 12 months, did the food you bought not last and you didn't have the money to get more?: Never true Within the past 12 months, did you worry whether your food would run out before you got money to buy more?: I choose not to answer this question Do you have trouble paying for medicines?: I choose not to answer this question Do you have trouble getting transportation to medical appointments?: I choose not to answer this question Do you have trouble paying your heating and electricity bill?: I choose not to answer this question Do you have trouble taking care of your child, family member or friend?: I choose not to answer this question Do you have trouble with day-to-day activities such as bathing, preparing meals, shopping, managing finances, etc.?: I choose not to answer this question Are you currently unemployed and looking for a job?: I choose not to answer this question Are you interested in more education?: I choose not to answer this question Please select the resources that you would like help with: None Currently or been in a relationship where the following occur: I choose not to answer THRIVE Score: 0 AUDIT C Alcohol Use Questionnaire (AUDIT-C) 1. How often do you have a drink containing alcohol?: Never 3. How often do you have six or more drinks on one occasion?: Never Total Score: 0 Score Reviewed/Action Taken: Yes MARYLOU-7 AMB Questionnaire MARYLOU-7 Date MARYLOU - 7 assessed: 07/16/24 Feeling nervous, anxious, or on edge: 0 = Not at all Not being able to stop or control worryin = Not at all Worrying too much about different things: 0 = Not at all Trouble relaxin = Not at all Being so restless that it is hard to sit still: 0 = Not at all Becoming easily annoyed or irritable: 0 = Not at all Feeling afraid as if something awful might happen: 0 = Not at all Total MARYLOU-7 score (0-4 normal; 5-9 mild; 10-14 moderate; 15-21 severe): 0 Source: Developed by Drs. Stephen Cotton, Salma Mcdonough, Scott Mejia and colleagues, with an educational natalio from [employer]. MARYLOU-7 Assessment Billing MARYLOU-7 Assessment Tool: MARYLOU-7 Assessment 85722 Physical exam (Primary Care) Vital Signs: Last Vital Signs Pulse 78 07/16/24 13:37 BP 118/78 07/16/24 13:37 Pulse Ox 98 07/16/24 13:37 Oxygen Delivery Method Room Air 07/16/24 13:37 Tobacco/Smoking Status: Tobacco use Status Tobacco use date assessed 07/16/24 07/16/24 13:39 Patient Tobacco Use Status Never used Tobacco 07/16/24 13:39 e-Cigarette/Vaping Use Never Used 07/16/24 13:39 Thrive Assessment: Date of Thrive Assessment Date Thrive assessed 07/16/24 07/16/24 13:39 Currently or been in a relationship where the following occur: I choose not to answer Coding Level of Care Code Est Pt Level 3 (26538) Diagnoses Elevated serum creatinine R79.89 CKD (chronic kidney disease), stage III N18.30 Diabetes type 2, controlled E11.9 Additional Codes MARYLOU-7 Assessment Billing - MARYLOU-7 Assessment Tool: MARYLOU-7 Assessment 58753 ([id number]) Assessment & Plan Assessment & Plan (1) Elevated serum creatinine: Code(s): R79.89 - Other specified abnormal findings of blood chemistry Category: Medical (2) CKD (chronic kidney disease), stage III: Code(s): N18.30 - Chronic kidney disease, stage 3 unspecified Category: Medical (3) Diabetes type 2, controlled: Code(s): E11.9 - Type 2 diabetes mellitus without complications Category: Medical Plan . Orders: Orders Complete Blood Count Auto Diff Today R7. - Other specified abnormal findings of blood chemistry Comprehensive Met. Panel Today . - Other specified abnormal findings of blood chemistry UA CC w/rflx Micro + Cult Today - Other specified abnormal findings of blood chemistry Medications: New ciprofloxacin HCl (Cipro) 250 mg PO BID 3 days 6 tabs 0RF
== END 2024-07-16 14:19 | disposition home or self-care (01) ==
PROVIDERS: PCP Nurse Practitioner Family; Visit Provider Nurse Practitioner Family
DX: R79.89 Other specified abnormal findings of blood chemistry (principal); N18.30 Chronic kidney disease, stage 3 unspecified; E11.9 Type 2 diabetes mellitus without complications

== ENCOUNTER → 2024-07-16 13:34 | Outpatient (BNVA) | payer OTHER, SELFPAY | PROVIDERS: PCP Nurse Practitioner Family; Visit Provider Nurse Practitioner Family | DX: E11.22 Type 2 diabetes mellitus with diabetic chronic kidney disease (principal); N18.30 Chronic kidney disease, stage 3 unspecified; R79.89 Other specified abnormal findings of blood chemistry | CPT/HCPCS: 96127 ==

== ENCOUNTER 2025-03-13 09:14 | Outpatient (REF) | payer OTHER, SELFPAY ==
--- OUTSIDE RECORDS SUMMARY | 2025-03-13 09:56 | XMS_ITS | Patient Health Record ---
Author Organization [facility] Address [address] [place] [address] Care Team Providers Care Fac Engineer Name Role Phone Anita BOLAND, [phone] [facility] Pro vider Unavailable Black, Ruth Unavailable [phone] Allergies Allergen (clinical drug ingredient) Drug/Non Drug Allergy documented on EMR Reaction Allergy Type Onset Date Status rivamptin (uncoded) burning,itchy Allergy Active sulfamethoxazole / trimethoprim Bactrim Unknown Drug Allergy Active 1st Choice Lancets Super Thin Unknown Drug Allergy Active Penicillin hives Drug Allergy Active adhesive tape rash Drug Allergy Act jim Reason For Referral No Information Medications Medication SIG (Take, Route, Frequency, Duration) Notes Start Date End Date Status Furosemide Active Clindamycin HCl 300 MG 1 capsule Orally every 6 hrs; Duration: 10 day(s) 01/01/2016 Not-Taking Gabapentin Active Trulicity 0.75 MG/0.5ML 0.5 ml Subcutaneous Unknown Pantoprazole Sodium Active hydroCHLOROthiazide 50 MG 1 tablet Orall y Once a day Unknown Sertraline HCl Activ e amLODIPine Besylate 10 MG 1 tablet Orall y Once a day Unknown Metoprolol & Diet Manage Prod Unknown Iodosorb 0.9 % as directed Externally daily; Duration: 30 days 02/12/2016 Unknown Minocycline HCl Acti ve Vitamin B 12 Active Losartan Potassium A ctive Vitamin C Active Metoprolol Succinate 50 MG Orally BID Active metFORMIN HCl 1000 MG 1 tablet with meal s Orally Twice a day Active Diflucan 100 MG 1 tablet Orally Three times a Week; Duration: 10 day(s) 01/01/2016 Not-Taking Toujeo SoloStar 300 UNIT/ML Subcutaneous Active Clindamycin HCl 300 MG 1 capsule Orally every 8 hrs; Duration: 10 days 01/30/2016 Not-Taking Immunizations Vaccine Route Administration Date Status Comme nts Influenza Unknown 11/16/2016 Refused Pt has never h ad flu shot and decided against having it Social History Tobacco Use: Social History Observation Description Date Details (start date - stop date) Never Smoker NA - NA Tobacco Use/Smoking Question Answer Notes Are you a: nonsmoker Additional Findings: Tobacco Non-User Current no n-smoker Tobacco use other than smoking: Question Answer Notes Are you an other tobacco user? 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) Active confirmed Problem Foot ulcer due to type 2 diabetes mellitus (4951454335949) Type 2 diabetes, uncontrolled, with ulcer of toe (E11.621) Active confirmed Plan Of Treatment Pending Test Test Name Order Date *CBC With Differential/Platelet 01/30/20 16 *Wound Culture 01/30/2016 Glucose Fasting 01/30/2016 X ray : Foot, right 3V 01/01/2016 99549- Debride <25 sq cm 01/23/2016 92732- Debride <25 sq cm 03/16/2016 35484- Debride <25 sq cm 11/01/2016 38316- Debride <25 sq cm 11/16/2016 [id number] SKIN/TISSUE 01/01/2016 [id number] SKIN/TISSUE 03/01/2016 [id number] SKIN/TISSUE 03/16/2016 73040 I&D ABSCESS- SIMPLE,SINGLE 016 [id number] NAIL(S) 11/01/2016 Insurance Providers Payer Name Payer Address Payer Phone Subscriber Number Group Number Insured Name Patient Relationship to Insured Coverage Start Date Coverage End Date Blue Benefits [address] [address] [place] [address] [id number] [place] Spouse - patient is the spouse of the insured Medical (General) History Medical History History ICD Code Back,Hip,and Knee pain Chicken pox type II diabetes Surgical History Surgery Date(Month/Year) back surgery 07/2016 Hospitalization History Reason Date(Month/Year) Patient went to [facility] for incresed bloo d sugar. 01/30/2016 [facility] [place] [facility] [place] had abcess in her ba ck 07/2016
--- OUTSIDE RECORDS SUMMARY | 2025-03-13 09:56 | XMS_ITS | Clinical Summary ---
Author Organization [facility] Address [address] [address] Care Team Providers Care Molybdenum Steamer Operator Name Role Phone Hermes Howard MD Primary Care Provider [phone] Allergies Active Allergy Reactions Criticality Noted Date Comments Adhesive Tape 09/21/2020 Amlodipine Other (see comments) 09/21/2020 Dulaglutide 09/21/2020 Lisinopril Other (see comments) 09/21/2020 Losartan Other (see comments) 09/21/2020 Penicillin V Other (see comments) 09/21/2020 Rifampin Other (see comments) 09/21/2020 Sulfa Antibiotics Other (see comments) 09/22/19 Sulfamethoxazole-Trimethoprim Other (see comments) 09/21/2020 Medications dilTIAZem CD (CARDIZEM CD) 240 MG 24 hr capsule TAKE 1 CAPSULE BY MOUTH ONCE A DAY 30 capsule 11 08/27/2020 Active sertraline (ZOLOFT) 50 MG tablet Take 1 tablet by mouth 1 (one) time each day Active pravastatin (PRAVACHOL) 10 MG tablet Take 1 tablet by mouth 1 (one) time each day Active metFORMIN (FORTAMET) 500 MG 24 hr tablet Take 1 tablet by mouth 2 (two) times a day Active Insulin Glargine, 1 Unit Dial, (Toujeyojana SoloStar) 300 UNIT/ML solution pen-injector Inject 20 Units under the skin 1 (one) time each day Active gabapentin (NEURONTIN) 100 MG capsule Take 1 capsule by mouth 2 (two) times a day Active Dulaglutide (Trulicity) 0.75 MG/0.5ML solution pen-injector Inject 1 pre-filled pen syringe under the skin 1 (one) time per week Active cholecalciferol (VITAMIN D-3) 50 MCG (1999 UT) capsule Take 1 capsule by mouth every 30 (thirty) days 09/08/2020 Active Active Problems Problem Noted Date Diagnosed Date Obesity 09/21/2020 Acute nontraumatic kidney injury 09/21/2020 Anemia 09/21/2020 Chronic kidney disease stage 3 09/21/2020 Type 2 diabetes mellitus 09/21/2020 Dyslipidemia 09/21/2020 Hypertensive disorder 09/21/2020 Hyperkalemia 09/21/2020 Hyponatremia 09/21/2020 Family History Medical History Relation Comments Heart disease Father Hypertension Father Hypertension Mother Relation Status Comments Father Mother Alive Social History Tobacco Use Types Packs/Day Years Used Date Smoking Tobacco: Never Comments Unknown Sex and Gender Information Value Date Recorded Sex Assigned at Not on file Legal Sex Female 4:48 PM EST Gender Identity Not on file Sexual Orientation Not on file Last Filed Vital Signs Vital Sign Reading Time Taken Comments Blood Pressure 142/90 08/06/2019 12:00 PM EST Pulse 88 08/06/2019 12:00 PM EST Temperature - - Respiratory Rate - - Oxygen Saturation 98% 08/06/2019 12:00 PM EST Inhaled Oxygen Concentration - - Weight - - Height 170.2 cm (5' 7 ) 03/31/2020 12:00 PM EDT Body Mass Index - - Plan of Treatment Health Maintenance Due Date Last Done Comments Breast Cancer Screening 1962 Pneumococcal Vaccine: 50+ Ye ars (1 of 2 - PCV) 1981 Colorectal Cancer Screening: Annual FOBT 2011 Colorectal Cancer Screening: Colonoscopy 2011 Colorectal Cancer Screening: Sigmoidoscopy 2011 Diabetes: Hemoglobin A1C 08/07/2020 03/03/2020 Diabetes: Ophthalmology Exam 08/07/2020 Diabetes: Pedal Pulse Checked 08/07/2020 Diabetes: Sensory Foot Exam 08/07/2020 Diabetes: Visual Foot Exam 08/07/2020 Influenza Vaccine (#1) 2025 Hepatitis B Vaccine Aged Out No longe r eligible based on patient's age to complete this topic Procedures Procedure Name Priority Date/Time Associated Diagnosis Comments BLOOD PANEL (HC) Routine 03/03/2020 12:0 0 AM EDT from Last 3 Months or Most Recently Relevant to Health Maintenance Results * (ABNORMAL) Blood Panel (03/03/2020 12:00 AM EDT) Triglycerides 106 <150 mg/dl [facility] Hemoglobin A1C 5.9(H) <5 % [facility] Creatinine 1.43(H) 0.70 - 1.30 mg/dl [facility] Cholesterol 160 <200 mg/dl [facility] HDL 44 >40 mg/dl [facility] LDL,Direct 95 <130 mg/dl [facility] BUN 22(H) 9 - 20 mg/dl [facility] Calcium 8.7 8.4 - 10.2 mg/dl [facility] eGFR Non- 38(L) >60 ml/min [facility] 03/03/2020 us [facility] [id number] LICITED RESULTS Final Result [facility] from Last 3 Months or Most Recently Relevant to Health Maintenance Insurance Comprehensive Benefits Comprehensive Benefits Care Teams Molybdenum Steamer Operator Relationship Specialty Start Date End Date Hermes Howard MD [facility] [address], [place] PCP - General 07/21/20
[2025-03-13 10:13] LABS: MANUAL DIFF FLAG NO
[2025-03-13 10:23] LABS: Hematocrit 37.5 % (37.0-47.0); Hemoglobin 11.9 g/dl (12.0-16.0); Imm Gran Abs Auto 0.04 X10*3/uL (0.00-0.03); Imm Gran Pct Auto 0.4 % (0.0-0.4); Lymphocytes Absolute Auto 2.1 X10*3/uL (1.2-4.9); Mean Corpuscular HGB Conc 31.7 g/dl (31.0-35.0); Mean Corpuscular Hemoglobin 29.6 pg (27.0-33.0); Mean Corpuscular Volume 93.3 fL (80.0-98.0); NRBC Abs Auto 0.000 X10*3/uL (0.0-0.012); NRBC Pct Auto 0.0 /100WBC (0.0-0.2); Platelet Count 301 X10*3/uL (160-400); Red Blood Count 4.02 X10*6/uL (4.20-5.50); White Blood Count 9.8 X10*3/uL (4.8-10.8)
[2025-03-13 10:32] LABS: Alanine Aminotransferase 12 U/L (0-31); Albumin Level 4.1 g/dL (3.5-5.0); Alkaline Phosphatase 82 U/L (39-117); Anion Gap 13 (12-20); Aspartate Amino Transferase 17 U/L (5-31); Blood Urea Nitrogen 15 mg/dL (9-16); Calcium 9.4 mg/dL (8.4-10.2); Carbon Dioxide 24 mmol/L (22-29); Chloride 109 mmol/L (96-108); Estimated Glomerular Filt Rate 37; Potassium 4.7 mmol/L (3.3-5.1); Sodium 141 mmol/L (135-145); Total Protein 7.6 g/dL (6.5-8.0)
[2025-03-14 13:10] LABS: Appearance Urine Cloudy; Glucose Urine UA Negative (Negative); PH 5.5 (5.0-9.0); Specific Gravity - Urine 1.020 (1.005-1.025); UMIC TRIGGER UACC YES
[2025-03-14 13:44] LABS: Other Crystals Urine Present
== END 2025-03-13 09:15 | disposition home or self-care (01) ==
LOC: HO.HMGCLDS 09:14
PROVIDERS: PCP Nurse Practitioner Family; Visit Provider Nurse Practitioner Family
DX: R79.89 Other specified abnormal findings of blood chemistry (principal)
CPT/HCPCS: 36415; 80053; 81001; 81003; 85025

== ENCOUNTER 2025-03-14 11:19 | Outpatient (AMB) | payer OTHER, SELFPAY ==
--- NOTE | 2025-03-14 11:31 | MHC.PC.OV ---
Vital Signs 03/14/25 11:32 Height 5 ft 7 in BMI Reason not done Patient refused/unable BP 128/72 Blood Pressure Location Rt radial Position Sitting Pulse 72 Pulse Source Pulse Oximeter Temp 98.7 F Temp Source Oral Pulse Oximetry (%) 99 Oxygen Delivery Method Room Air Intake Visit Reasons: 6 month follow up - see comments Paid Search Analyst Required: No Accompanied by: Self / Same As Patient Allergies lisinopril (LISINOPRIL) Allergy (Mild, Verified 03/14/25 11:31) COUGHING, cough Penicillins (PENICILLINS) Allergy (Mild, Verified 03/14/25 11:31) HIVES Sulfa (Sulfonamide Antibiotics) (SULFA (SULFONAMIDE ANTIBIOTICS)) Allergy (Mild, Verified 03/14/25 11:31) HIVES adhesive tape (ADHESIVE TAPE) Allergy (Unknown, Verified 03/14/25 11:31) RASH amlodipine (Norvasc) Allergy (Unknown, Verified 03/14/25 11:31) fluid retention losartan Allergy (Unknown, Verified 03/14/25 11:31) unkown penicillin V Allergy (Unknown, Verified 03/14/25 11:31) hives rifampin Allergy (Unknown, Verified 03/14/25 11:31) severe skin chambers tape adhesive Allergy (Unknown, Verified 03/14/25 11:31) unknown Medication List - Last Reconciled 03/14/25 by SOLE Painting- cholecalciferol (vitamin D3) 50 mcg PO DAILY cyanocobalamin (vitamin B-12) 100 mcg PO DAILY diltiazem HCl CD 240 mg PO DAILY 90 days dulaglutide 1.5 mg (0.5 mL) subcut QWEEK insulin glargine U-300 conc (Toujeo Max U-300 SoloStar) 25 units (0.0833 mL) subcut DAILY 90 days irbesartan 75 mg PO DAILY metformin 500 mg PO BID multivitamin 1 tab PO DAILY pen needle, diabetic Use to inject insulin once a day pravastatin 10 mg PO BEDTIME 90 days sertraline 50 mg PO DAILY Tobacco use date assessed: 07/16/24 Dental Screening Dental Screen Date: 07/16/24 HPI 6 month follow up - see comments HPI Details Chief Complaint The patient presents for a follow-up regarding diabetes management. History of Present Illness The patient is a 64-year-old female presenting with a follow-up for diabetes management. Her current Hemoglobin A1c is 7.1%, and she acknowledges the need to improve her dietary habits. No changes to her medication regimen are planned at this time. The patient is also managing morbid obesity, which is a contributing factor to her diabetes. She has been advised to monitor her weight and dietary intake closely. Additionally, she has a history of chronic kidney disease but has expressed a preference not to consult a instructional technologist at this time. Her kidney function will continue to be monitored during follow-up visits. Preventative care measures discussed include the recommendation for mammogram and eye exams, which the patient understands and acknowledges. HTN: stable anxiety and depression: sertraline 100mg, stable Social History Health Maintenance - Mammogram recommended for breast cancer screening - Eye exams recommended for diabetes-related eye health Review of Systems - Neurological: Denies neuropathy - Genitourinary: Denies polyuria - Endocrine: Denies polydipsia denies any cp, dizziness, [place], blurred vision, denies any si or hi Physical Exam General: Cooperative, healthy appearing, comfortable, no acute distress and well developed, morbidly obese Orientation: Patient oriented x3 Limitations: No limitations Head: Normal to inspection Ears: Hearing grossly normal bilaterally Nose: Normal external nose present Face and sinus: Normal facial exam Eyes: Appearance normal, both eyes and all related structures Neck: Normal visual inspection and Yes full ROM Respiratory: Normal respiratory effort and able to speak in complete sentences. Clear to auscultation bilaterally Cardiovascular: Regular rate and rhythm. Normal S1 and S2 GI: Normal to inspection. Soft to palpation and nontender Skin: No rashes or lesions noted, onychomycosis noted bilaterally Neuro: Patient oriented x3, positive sensation use of monofilament Extremities: Normal to inspection, callus formation right foot plantar aspect Results - Labs: Hemoglobin A1c is 7.1% Plan 1. Diabetes Mellitus The patient's diabetes management will continue with the current medication regimen, as no changes are deemed necessary at this time. The patient is advised to focus on dietary improvements to help control her blood glucose levels. 2. Morbid Obesity The patient is encouraged to monitor her weight and dietary intake closely to manage her obesity, which is a contributing factor to her diabetes. 3. Chronic Kidney Disease The patient has a history of chronic kidney disease and prefers not to consult a instructional technologist at this time. Her kidney function will continue to be monitored during follow-up visits. 4. Onychomycosis Onychomycosis is noted bilaterally, and the patient should be advised on appropriate foot care to prevent complications. 5. Preventative Care Preventative care measures include recommendations for a mammogram and eye exams, which the patient understands and acknowledges. Discussion Notes During the visit, we discussed the patient's current diabetes management plan, emphasizing the importance of dietary improvements to control blood glucose levels. We also reviewed her chronic kidney disease status and her preference not to see a instructional technologist at this time, agreeing to continue monitoring her kidney function. Preventative care measures, including mammogram and eye exams, were recommended, and the patient expressed understanding and agreement with these recommendations. Patient Instructions - Focus on improving dietary habits to help manage diabetes. - Monitor weight and dietary intake closely to address obesity. - Follow up for kidney function monitoring as discussed. - Schedule and attend recommended mammogram and eye exams. [facility] Medical History Colonoscopy refused H/O fracture of foot alf (current) use of insulin Morbid obesity Vitamin D deficiency Pernicious anemia Reactive depression CKD (chronic kidney disease), stage III Hypertension Dyslipidemia Diabetes type 2, controlled Surgical History H/O lumbosacral spine surgery Family History Father Congestive heart failure Emphysema lung Smoker Mother Hypertension Social History Household Members: None Housing: House Alcohol intake: never Patient Tobacco Use Status: Never used Tobacco e-Cigarette/Vaping Use: Never Used Second Hand Smoke Exposure: No service: No Current occupational status: retired Cognitive needs: No Hearing needs: No Vision needs: No Questionnaire PHQ-9 Over the last 2 weeks, how often have you been bothered by any of the following problems? 1. Little interest or pleasure in doing things: not at all 2. Feeling down, depressed, or hopeless: not at all 3. Trouble falling or staying asleep, or sleeping too much: not at all 4. Feeling tired or having little energy: not at all 5. Poor appetite or overeating: not at all 6. Feeling bad about yourself - or that you are a failure or have let yourself or your family down: not at all 7. Trouble concentrating on things, such as reading the newspaper or watching television: not at all 8. Moving or speaking so slowly that other people could have noticed. Or the opposite - being so fidgety or restless that you have been moving around a lot more than usual: not at all 9. Thoughts that you would be better off or of hurting yourself in some way: not at all Total score: 0 Depression Screening Interpretation: Negative Depression Screening Done: Yes 02419 - PHQ-9 Billing: Yes Source: Developed by Drs. Stephen Cotton, Salma Mcdonough, Scott Mejia and colleagues, with an educational natalio from [employer]. Thrive Questionnaire Date Thrive assessed: 07/16/24 I am a: Patient What is your living situation today?: I have a steady place to live Within the past 12 months, did the food you bought not last and you didn't have the money to get more?: Never true Within the past 12 months, did you worry whether your food would run out before you got money to buy more?: I choose not to answer this question Do you have trouble paying for medicines?: I choose not to answer this question Do you have trouble getting transportation to medical appointments?: I choose not to answer this question Do you have trouble paying your heating and electricity bill?: I choose not to answer this question Do you have trouble taking care of your child, family member or friend?: I choose not to answer this question Do you have trouble with day-to-day activities such as bathing, preparing meals, shopping, managing finances, etc.?: I choose not to answer this question Are you currently unemployed and looking for a job?: I choose not to answer this question Are you interested in more education?: I choose not to answer this question Please select the resources that you would like help with: None Currently or been in a relationship where the following occur: I choose not to answer THRIVE Score: 0 AUDIT C Alcohol Use Questionnaire (AUDIT-C) 2. How many drinks containing alcohol do you have on a typical day when you are drinking?: 1 or 2 3. How often do you have six or more drinks on one occasion?: Never Total Score: 0 Score Reviewed/Action Taken: Yes MARYLOU-7 AMB Questionnaire MARYLOU-7 Date MARYLOU - 7 assessed: 03/14/25 Feeling nervous, anxious, or on edge: 0 = Not at all Not being able to stop or control worryin = Not at all Worrying too much about different things: 0 = Not at all Trouble relaxin = Not at all Being so restless that it is hard to sit still: 0 = Not at all Becoming easily annoyed or irritable: 0 = Not at all Feeling afraid as if something awful might happen: 0 = Not at all Total MARYLOU-7 score (0-4 normal; 5-9 mild; 10-14 moderate; 15-21 severe): 0 Source: Developed by Drs. Stephen Cotton, Salma Mcdonough, Scott Mejia and colleagues, with an educational natalio from [employer]. MARYLOU-7 Assessment Billing MARYLOU-7 Assessment Tool: MARYLOU-7 Assessment 32564 Physical exam (Primary Care) Vital Signs: Last Vital Signs Temp 98.7 F 03/14/25 11:32 Pulse 72 03/14/25 11:32 BP 128/72 03/14/25 11:32 Pulse Ox 99 03/14/25 11:32 Oxygen Delivery Method Room Air 03/14/25 11:32 Tobacco/Smoking Status: Tobacco use Status Tobacco use date assessed 07/16/24 03/14/25 11:37 Patient Tobacco Use Status Never used Tobacco 03/14/25 11:37 e-Cigarette/Vaping Use Never Used 03/14/25 11:37 PHQ-9: PHQ-9 Score PHQ-9: Total score 0 03/14/25 11:38 Depression Screening Interpretation: Negative Thrive Assessment: Date of Thrive Assessment Date Thrive assessed 07/16/24 03/14/25 11:37 Currently or been in a relationship where the following occur: I choose not to answer Results AMB Hemoglobin A1c AMB Hemoglobin A1c 7.1 % Last Edit by Linda Mariano MA on 03/14/25 11:47 Coding Level of Care Code Est Pt Level 3 (32792) Diagnoses Diabetes type 2, controlled E11.9 Hypertension I10 Additional Codes MARYLOU-7 Assessment Billing - MARYLOU-7 Assessment Tool: MARYLOU-7 Assessment 50366 ([id number]) PHQ-9 - 79157 - PHQ-9 Billing: Yes ([id number]) Assessment & Plan Assessment & Plan (1) Diabetes type 2, controlled: Code(s): E11.9 - Type 2 diabetes mellitus without complications Category: Medical (2) Hypertension: Code(s): I10 - Essential (primary) hypertension Category: Medical Plan . Orders: Orders AMB Hemoglobin A1c Today Z13.9 - Encounter for screening, unspecified Comprehensive [place]. Panel Fast Today E11.9 - Type 2 diabetes mellitus without complications, I10 - Essential (primary) hypertension TSH reflex Free T4 Today E11.9 - Type 2 diabetes mellitus without complications, I10 - Essential (primary) hypertension Lipid Panel Today E11.9 - Type 2 diabetes mellitus without complications, I10 - Essential (primary) hypertension Complete Blood Count Auto Diff Today E11.9 - Type 2 diabetes mellitus without complications, I10 - Essential (primary) hypertension UA CC w/rflx Micro + Cult Today E11.9 - Type 2 diabetes mellitus without complications, I10 - Essential (primary) hypertension Medications: Changed From sertraline 50 mg PO DAILY 90 tabs 1RF To sertraline 100 mg PO DAILY 90 tabs 1RF
[2025-03-14 11:32] VITALS: BP 128/72; PULSE 72; TEMP 37.1; O2SAT 99
--- OUTSIDE RECORDS SUMMARY | 2025-03-14 13:00 | XMS_ITS | Patient Health Record ---
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) Active confirmed Problem Foot ulcer due to type 2 diabetes mellitus ([id number]) Type 2 diabetes, uncontrolled, with ulcer of toe (E11.621) Active confirmed Plan Of Treatment Pending Test Test Name Order Date *CBC With Differential/Platelet 01/30/20 16 *Wound Culture 01/30/2016 Glucose Fasting 01/30/2016 X ray : Foot, right 3V 01/01/2016 05668- Debride <25 sq cm 01/23/2016 08324- Debride <25 sq cm 03/16/2016 42335- Debride <25 sq cm 11/01/2016 83767- Debride <25 sq cm 11/16/2016 42590-[id number] SKIN/TISSUE 01/01/2016 59512-[id number] SKIN/TISSUE 03/01/2016 36445-[id number] SKIN/TISSUE 03/16/2016 96756 I&D ABSCESS- SIMPLE,SINGLE 016 04502-CNPY NAIL(S) 11/01/2016 Insurance Providers Payer Name Payer Address Payer Phone Subscriber Number Group Number Insured Name Patient Relationship to Insured Coverage Start Date Coverage End Date [employer] Benefits [address] [address] [place] [address] [id number] [place] Spouse - patient is the spouse of the insured Medical (General) History Medical History History ICD Code Back,Hip,and Knee pain Chicken pox type II diabetes Surgical History Surgery Date(Month/Year) back surgery 07/2016 Hospitalization History Reason Date(Month/Year) Patient went to [facility] [place] for incresed bloo d sugar. 01/30/2016 [facility] [place] [facility] [place] [place] abcess in her ba ck 07/2016
--- OUTSIDE RECORDS SUMMARY | 2025-03-14 13:00 | XMS_ITS | Clinical Summary ---
Author Organization [facility] Facility Address [address] [address] Care Team Providers Care Material Expeditor Name Role Phone Hermes Howard MD Primary Care Provider [phone] Allergies Active Allergy Reactions Criticality Noted Date [...] ml/min PVNMA 03/03/2020 us Rtama Conversion LAB [id number] LICITED RESULTS Final Result PVNMA from Last 3 Months or Most Recently Relevant to Health Maintenance Insurance Comprehensive Benefits Comprehensive Benefits Care Teams Material Expeditor Relationship Specialty Start Date End Date Hermes Howard MD [facility] [address] [place], [place] PCP - General 07/21/20
== END 2025-03-14 12:20 | disposition home or self-care (01) ==
LOC: HO.HMCC 11:19
PROVIDERS: PCP Nurse Practitioner Family; Visit Provider Nurse Practitioner Family
DX: E11.9 Type 2 diabetes mellitus without complications (principal); I10 Essential (primary) hypertension; Z13.9 Encounter for screening, unspecified

== ENCOUNTER → 2025-03-14 11:19 | Outpatient (BNVA) | payer OTHER, SELFPAY | PROVIDERS: PCP Nurse Practitioner Family; Visit Provider Nurse Practitioner Family | DX: E11.22 Type 2 diabetes mellitus with diabetic chronic kidney disease (principal); E66.01 Morbid (severe) obesity due to excess calories; I12.9 Hypertensive chronic kidney disease with stage 1 through stage 4 chronic kidney disease, or unspecified chronic kidney disease; N18.9 Chronic kidney disease, unspecified; B35.1 Tinea unguium | CPT/HCPCS: 83036; 96127 ==